=== PATIENT | female | born 1965 | race Caucasian/White ===

== ENCOUNTER → 2018-04-21 | Outpatient (CLI) | payer BC ==
[~2018-04-21] MED LIST: LIDOCAINE 1% PF 2 ML VIAL.; methylPREDNISolone ACETATE 40 MG/ML VIAL.; methylPREDNISolone ACETATE 80 MG/ML VIAL.
== END | disposition home or self-care (01) ==
LOC: PNCL 12:58
DX: M51.14 Intervertebral disc disorders with radiculopathy, thoracic region (principal); K21.9 Gastro-esophageal reflux disease without esophagitis; M17.12 Unilateral primary osteoarthritis, left knee; Z86.19 Personal history of other infectious and parasitic diseases; Z98.51 Tubal ligation status; Z90.49 Acquired absence of other specified parts of digestive tract; Z90.710 Acquired absence of both cervix and uterus; Z96.652 Presence of left artificial knee joint; Z98.890 Other specified postprocedural states; Z79.899 Other long term (current) drug therapy; Z88.2 Allergy status to sulfonamides; Z88.8 Allergy status to other drugs, medicaments and biological substances; Z72.89 Other problems related to lifestyle
CPT/HCPCS: 62321; J1030; J1040

== ENCOUNTER → 2018-05-04 | Outpatient (CLI) | payer BC ==
[~2018-05-04] MED LIST changes: +IOHEXOL 180 MG/ML 10 ML VIAL.
== END | disposition home or self-care (01) ==
LOC: PNCL 12:36
DX: M51.16 Intervertebral disc disorders with radiculopathy, lumbar region (principal); M51.14 Intervertebral disc disorders with radiculopathy, thoracic region; Z90.710 Acquired absence of both cervix and uterus; Z90.49 Acquired absence of other specified parts of digestive tract; Z88.8 Allergy status to other drugs, medicaments and biological substances; Z88.2 Allergy status to sulfonamides; K21.9 Gastro-esophageal reflux disease without esophagitis; Z79.899 Other long term (current) drug therapy; Z72.89 Other problems related to lifestyle; Z98.890 Other specified postprocedural states; Z86.19 Personal history of other infectious and parasitic diseases; Z96.652 Presence of left artificial knee joint; Z98.51 Tubal ligation status; M17.12 Unilateral primary osteoarthritis, left knee
CPT/HCPCS: 62323; J1030; J1040; Q9965

== ENCOUNTER → 2018-06-29 | Outpatient (CLI) | payer BC ==
[~2018-06-29] MED LIST changes: +CHOL2000 PO; +CYAN50008 PO; +CYCL10TA2 PO; +DULO60CA6 PO; +GABA-586 PO; -IOHEXOL 180 MG/ML 10 ML VIAL.; +IOHEXOL 180 MG/ML 10 ML VIAL. ONE; +LACT1CAP2 PO; -LIDOCAINE 1% PF 2 ML VIAL.; +LIDOCAINE 2% PF 2ML VIAL. ONE; +LIRA0.6P2 SQ; +MAGN400C PO; +MULT1TAB52 PO; +NADO40TA PO; +OMEP20CA9 PO; +OXYC-328 PO; +PROM25SU32 RC; +SIMV40TA3 PO; +TRAM50TA PO; +hormone replacement; -methylPREDNISolone ACETATE 40 MG/ML VIAL.; +methylPREDNISolone ACETATE 40 MG/ML VIAL. ONE; -methylPREDNISolone ACETATE 80 MG/ML VIAL.; +methylPREDNISolone ACETATE 80 MG/ML VIAL. ONE
--- NOTE | 2018-06-29 22:14 | PAIN ---
DATE OF SERVICE: 06/29/2018 PROGRESS NOTE FOR PAIN CLINIC DIAGNOSES: 1. Thoracic radiculopathy with thoracic herniated disk. 2. Low back pain. 3. Cervical radiculopathy with cervical degenerative disk disease. HISTORY OF PRESENT ILLNESS: The patient is a 53-year-old female who returns for followup status post both lumbar and thoracic epidural steroid injection. The patient reports very good improvement about 75% in the pain, still some pain in the low back; however, but the thoracic pain was doing much better. The patient reports her main complaint today is neck and bilateral shoulder pain. The patient had a recent MRI scan, which she brings with a disk and a read out of the cervical spine showing cervical spondylosis with small areas of disk protrusion centrally at C4-C5, C5-C6 and a small central left-sided area disk protrusion with a mild mass effect at C6-C7. The patient reports still significant pain in the base of the neck and shoulders, slightly worse on the left than the right, but present bilaterally. The patient reports it is a 10 on a scale of 10 at its worst, 8-9 on average and a 7 at its least and is a 7 today. The patient reports it is worse with activity, standing, walking, but occasionally can just flare up for no apparent reason and cause significant pain to the point where she has vomited from the pain being so bad in the base of the neck and shoulders. The patient reports no loss of motor function in the upper extremities, but occasionally some tingling in the left arm. The patient reports the pain is aching, sharp, tight, becoming more constant, more severe with tingling in the left arm and shooting pain. The patient reports it awakens her from sleep about every 6-8 hours, but not every night. PHYSICAL EXAMINATION: VITAL SIGNS: The patient's blood pressure 132/88, pulse 93, respirations 18, temperature 98.2 degrees Fahrenheit, height is 5 feet 4 inches and weight is 239 pounds. GENERAL: The patient is awake, alert, oriented, appropriate, very pleasant demeanor. HEENT: Head shows normocephalic and atraumatic. Extraocular movements are intact and symmetrical. Oral cavity: Mucous membranes are moist and pink. Dentition is intact. NECK: Shows anterior throat is supple without palpable lymphadenopathy noted. Swallow reflex is symmetrical. CHEST: Shows normal on inspection. Breath sounds are clear to auscultation bilaterally. HEART: Shows S1 and S2 clear. No murmurs are auscultated. ABDOMEN: Soft, nontender and nondistended. No palpable organomegaly is noted. No rebound or guarding demonstrated. BACK: Shows spine grossly in the midline. Cervical paraspinous muscle shows symmetrical, but with moderate tenderness with palpation in the inferior aspect of the cervical paraspinous muscles in the superior medial trapezius, slightly more tender on the left than the right, but present bilaterally without atrophy or hypertrophy. The patient has good rotational motion of cervical spine, both laterally as well as extension and flexion without significant pain reported. Thoracic spine shows some moderate tenderness, but only diffusely in the thoracic paraspinous muscles bilaterally, but are symmetrical. Lumbar paraspinous muscle shows symmetrical, some tenderness in the lower lumbar distribution, more severe than in the thoracic distribution, but not as severe as in the cervical distribution. The patient shows no radiation of pain. Good rotational motion with some moderate tenderness with extension of the lumbar spine, but not with forward flexion. Right and left lateral rotation probably shows tenderness on the left side more than the right, but present bilaterally at 10 degrees rotation. EXTREMITIES: Lower extremities show deep tendon reflexes at 1+ in the patellar and tendo calcaneus tendons. Motor exam is strong with 5/5 dorsiflexion and extension. 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 Peripheral pulses are 2+ radial and 1+ posterior tibia. No peripheral edema is noted bilaterally. Options were discussed with the patient. The patient's old chart was reviewed as was her current medication regimen updated. Current review of system updated today as well. We will proceed with a cervical epidural steroid injection today with fluoroscopic guidance. Risks were again discussed including, but not limited to bleeding, infection, possibility of epidural hematoma and subsequent neurological compromise, dural puncture, headache, spinal cord and/or nerve damage, side effects of steroid medication and poor results regarding pain control. The patient understands and wished to proceed. She is to return to the clinic in approximately 2 weeks for followup. She was counseled as to return appointment, activity level and side effects to be aware of. DIAGNOSIS: Cervical radiculopathy with cervical degenerative disk disease. PROCEDURE: Cervical epidural steroid injection, translaminar approach, C6-C7 level using C-arm fluoroscopic guidance under sterile prep and drape using local anesthetic. MEDICATION INJECTED: A total of 120 mg Depo-Medrol plus 5 mL of preservative-free normal saline and 2 mL of Isovue for contrast. CONDITION AT DISCHARGE: Stable. The patient tolerated the procedure well and had no complications. AMARI RAMIRES MD DR: GERRY/castro JOB#: [id number] / [id number]
== END | disposition home or self-care (01) ==
LOC: PNCL 13:08
PROVIDERS: ATTEND Anesthesiology
DX: M50.123 Cervical disc disorder at C6-C7 level with radiculopathy (principal); M51.14 Intervertebral disc disorders with radiculopathy, thoracic region
CPT/HCPCS: 62321; J1030; J1040; J2001; Q9965

== ENCOUNTER → 2018-07-12 | Outpatient (CLI) | payer BC ==
[~2018-07-12] MED LIST changes: +BUPIVACAINE MPF 0.25% 10 ML VIAL. ONE; -LIDOCAINE 2% PF 2ML VIAL. ONE; -methylPREDNISolone ACETATE 80 MG/ML VIAL. ONE
--- NOTE | 2018-07-12 11:25 | PAIN ---
DATE OF SERVICE: 07/12/2018 PROGRESS NOTE FOR PAIN CLINIC DIAGNOSES: 1. Lumbar and lumbosacral spondylosis. 2. Cervical radiculopathy with cervical degenerative disk disease. 3. Thoracic radiculopathy with thoracic herniated disk. HISTORY OF PRESENT ILLNESS: The patient is a 53-year-old female who returns for followup status post lumbar epidural steroid injection, thoracic epidural steroid injection and cervical epidural steroid injection. The patient reports about 90% improved in the neck and upper back. Her main complaint is low back pain, mostly rotational and with standing or sitting prolonged period in the low back itself without specific radiation. The patient reports it is a 10 on a scale of 10 at its worst, 8 on average, 7 at its least and is 8 today. The patient reports it is aching, tight, radiating into the hips but not in the lower extremities and becoming more constant, worse with extension of the spine, worse with axial loading of the low back and worse with rotation. The patient reports she is doing much better, working on the computer as her neck is feeling better but the low back is becoming much more noticeable. The patient reports it does not awaken her from sleep at night, however, better she gets off of her feet. Still some significant aching and pain in the low back. PHYSICAL EXAMINATION: VITAL SIGNS: The patient's blood pressure 126/79, pulse 83, respirations 18, temperature 99.5 degrees Fahrenheit, height is 5 feet 4 inches and weight is 239 pounds. GENERAL: The patient is awake, alert, oriented, appropriate and very pleasant demeanor. HEENT: Head shows normocephalic and atraumatic. Extraocular movements are intact and symmetrical. Oral cavity, mucous membranes are moist and pink. Dentition is intact. NECK: Shows anterior throat supple without palpable lymphadenopathy noted. Swallow reflex symmetrical. CHEST: Shows normal on inspection. Breath sounds clear to auscultation bilaterally. HEART: Shows S1 and S2 clear. No murmurs auscultated. ABDOMEN: Soft, nontender and nondistended. No palpable organomegaly is noted. No rebound or guarding demonstrated. BACK: Shows spine grossly in the midline. Slight exaggeration of the thoracic kyphosis and some minor flattening of the cervical lordotic curvature and lumbar lordotic curvature. Lumbar paraspinous muscle shows symmetrical on inspection, on palpation shows some moderate tenderness in the low lumbar distribution but only diffusely without radiation. The patient's neck shows full rotational motion without difficulty. EXTREMITIES: Lower extremities show deep tendon reflexes at 1+ in the patellar and tendo-calcaneus tendons. Motor exam is 5/5 with dorsiflexion and extension. Peripheral pulses are 1+ posterior tibial. No peripheral edema is noted. Options were discussed with the patient. The patient's old chart was reviewed as well as her current medication regimen updated. Current review of systems is updated today as well. We will proceed with bilateral L4-L5 and L5-S1 facet joint injection today with fluoroscopic guidance. Risks were again discussed including, but not limited to bleeding, infection, possibility of epidural hematoma and subsequent neurological compromise, dural puncture, headaches, spinal cord and/or nerve damage and side effects of steroid medication and poor results regarding pain control. The patient understands and wished to proceed. The patient will return to clinic in approximately 2 weeks for followup, was counseled as to return appointment, activity level and side effects to be aware of. We discussed possibility of radiofrequency ablation in the past. She has had this at an outside facility in the past with very good results and the pain very similar to that she had prior. We will see how her diagnostic blocks do today and if significantly improved, we will potentially proceed with radiofrequency ablation in the lumbar L4-L5 and L5-S1 medial branches in the future. DIAGNOSIS: Lumbar and lumbosacral spondylosis. PROCEDURES: Bilateral L4-L5 and L5-S1 facet joint injections using C-arm fluoroscopic guidance under sterile prep and drape using local anesthetic. MEDICATION INJECTED: A total of 120 mg Depo-Medrol plus 4 mL of 0.25% bupivacaine. CONDITION AT DISCHARGE: Stable. The patient tolerated the procedure well and had no complications. AMARI RAMIRES MD DR: GERRY/castro JOB#: [id number] / [id number]
== END | disposition home or self-care (01) ==
LOC: PNCL 07:50
PROVIDERS: ATTEND Anesthesiology
DX: M47.817 Spondylosis without myelopathy or radiculopathy, lumbosacral region (principal); M50.10 Cervical disc disorder with radiculopathy, unspecified cervical region; M51.14 Intervertebral disc disorders with radiculopathy, thoracic region
CPT/HCPCS: 64493; 64494; J1030; J3490; Q9965